=== PATIENT | female | born 1990 | race Caucasian/White ===

== ENCOUNTER 2017-06-12 20:36 | Emergency (ER) | payer OTHER ==
[~2017-06-12] VITALS: Ht 160 cm; Wt 67.1 kg
[2017-06-12 20:40] VITALS: BP 135/90
--- NOTE | 2017-06-12 20:50 | NUR ---
to lobby, a/w alexandro velásquez ermd noted
[2017-06-12 21:44] LABS: APPEARANCE,URINE SL CLOUDY (CLEAR); BILIRUBIN,URINE NEGATIVE (NEGATIVE); BLOOD, URINE 2+ (NEGATIVE); COLOR,URINE YELLOW (YELLOW); LEUKOCYTE ESTERASE ,URINE NEGATIVE (NEGATIVE); NITRITE, URINE NEGATIVE (NEGATIVE); PH,URINE 6.5 (5.0-9.0); UGLUCOSE NEGATIVE (NEGATIVE)
[2017-06-12 21:59] LABS: RBC,URINE 3-10 (FEW) /HPF (0-5); WBC,URINE 0-5 (RARE) /HPF (0-5)
[2017-06-12 22:00] LABS: URINE AMORPHOUS URATE 4+ /HPF (None Seen)
--- NOTE | 2017-06-12 22:40 | NUR ---
Patient ambulated to bed 12. RN evaluating patient at bedside.
--- NOTE | 2017-06-12 22:42 | NUR ---
PATIENT IS A 27 Y/O FEMALE WHO PRESENTS TO THE ED C/O RIGHT FLANK PAIN. PT STATES, "MY STOMACH STARTED HURTING TODAY." PT REPORTS 2/10 SH[place] R[place] ABD PAIN THAT DOES NOT RADIATE. PT DENIES, CP, SOB, N/V/D. PT AAOX4, RR EVEN/UNLABORED. PT REPOSITIONED FOR COMFORT, BED IN LOWEST POSITION. ER MD DR. RUSSELL NOTIFIED. WILL CONTINUE TO MONITOR.
[2017-06-13 01:04] VITALS: BP 130/89
--- NOTE | 2017-06-13 01:04 | NUR ---
DPatient discharged with v/s stable. Written and verbal after care instructions given and explained. Patient alert, oriented and verbalized understanding of instructions. Ambulatory with steady gait. All questions addressed prior to discharge. ID band removed. Patient advised to follow up with PMD. Rx of MOTRIN 800MG given. Patient educated on indication of medication including possible reaction and side effects. Opportunity to ask questions provided and answered.
== END 2017-06-13 01:04 | disposition home or self-care (01) ==
LOC: MED 20:36
DX: R10.11 Right upper quadrant pain (principal); R03.0 Elevated blood-pressure reading, without diagnosis of hypertension
CPT/HCPCS: 81001; 81025; 99285